=== PATIENT | female | born 1990 | race Caucasian/White ===

== ENCOUNTER 2019-02-14 15:56 | Emergency (ER) | payer OTHER ==
[~2019-02-14] VITALS: Ht 170.2 cm; Wt 62.2 kg
--- NOTE | 2019-02-14 15:58 | NUR ---
CALLED FOR TRIAGE NOT IN THE WAITING ROOM
[2019-02-14 16:07] VITALS: BP 107/76
[2019-02-14] MEDS ORDERED: TDAP [DIPH/PERTUSSIS/TET] 0.5 ML VIAL IM ONE ×2 (16:30→16:34)
== END 2019-02-14 16:43 | disposition home or self-care (01) ==
LOC: ER 16:02
DX: S71.111D Laceration without foreign body, right thigh, subsequent encounter (principal); J45.909 Unspecified asthma, uncomplicated; F41.9 Anxiety disorder, unspecified; F32.9 Major depressive disorder, single episode, unspecified; X78.8XXD Intentional self-harm by other sharp object, subsequent encounter
CPT/HCPCS: 90471; 90715; 99283; A6403